=== PATIENT | male | born 1970 | race African-American/Black ===

== ENCOUNTER 2025-05-13 08:01 | Emergency (ER) | payer OTHER ==
[2025-05-13 10:20] LABS: Anion Gap 16 mmol/L (10-20); BUN (Urea Nitrogen) 58 mg/dL (8.4-25.7); Calc. Creatinine Clearance 0 mL/min (70-130); Calcium 8.9 mg/dL (7.8-10.44); Carbon Dioxide 19 mmol/L (22-29); Chloride 115 mmol/L (98-107); Glucose 113 mg/dL (70-105); Potassium 5.6 mmol/L (3.5-5.1); Sodium 144 mmol/L (136-145)
[2025-05-13 10:24] LABS: Hematocrit 24.3 % (42.0-52.0); Hemoglobin 7.4 g/dL (14.0-18.0); Mean Corpuscular Hemoglobin 27.2 pg (27.0-31.0); Mean Corpuscular Volume 89.1 fl (78.0-98.0); Platelet Count 106 10x3/uL (130-400); Red Blood Cell (RBC) Count 2.73 mill/uL (4.70-6.10)
[2025-05-13] MEDS ORDERED: Furosemide 40 MG TAB ONE (10:33)
[2025-05-13] MEDS ORDERED: Sodium Polystyrene Sulfonate 15 GM (60 mL) BOT ONE (10:41)
[2025-05-13 10:52] LABS: Anisocytosis MODERATE=16-30 cells (100X) (0-5/hpf); MDiff Complete? YES; Platelet Adequacy Comment Appears Decreased; Polychromasia SLIGHT = 2-3 cells (100X) (0-2/hpf); Schistocytes SLIGHT = 2-5 cells (100X) (0-1/hpf)
== END 2025-05-13 12:15 | disposition home or self-care (01) ==
LOC: MADERS 08:01
DX: K94.23 Gastrostomy malfunction (principal); J69.0 Pneumonitis due to inhalation of food and vomit; E87.5 Hyperkalemia; E11.22 Type 2 diabetes mellitus with diabetic chronic kidney disease; I12.0 Hypertensive chronic kidney disease with stage 5 chronic kidney disease or end stage renal disease; N18.6 End stage renal disease; E66.9 Obesity, unspecified; Z86.718 Personal history of other venous thrombosis and embolism; Z86.73 Personal history of transient ischemic attack (TIA), and cerebral infarction without residual deficits
CPT/HCPCS: 36416; 71045; 74018; 80048; 85025; 93005; 36415-59